=== PATIENT | female | born 1965 | race Caucasian/White ===

== ENCOUNTER → 2020-05-10 10:20 | Outpatient (CLI) | payer OTHER, SELFPAY ==
[2020-05-10 11:24] LABS: Hemoglobin A1C% w Est Avg Glu 5.5 % (4.0-6.0)
[2020-05-10 11:35] LABS: Free T3, Triiodothyronine Free 4.09 pg/mL (2.77-5.27); Free T4, Direct Thyroxine 1.26 ng/dL (0.78-2.19)
[2020-05-10 11:37] LABS: Progesterone, Total 0.71 ng/mL
[2020-05-10 11:49] LABS: Thyroid Stimulating Hormone 1.11 uIU/mL (0.47-4.68)
[2020-05-10 11:53] LABS: Ferritin 49 ng/mL (11-264)
[2020-05-10 19:44] LABS: Vitamin D 25 Hydroxy (D3) < 12.8 ng/mL (30.0-100.0)
[2020-05-11 07:02] LABS: Insulin Level Total 8.6 uIU/mL (2.6-24.9); Sex Hormone Binding Globulin 82.3 nmol/L (17.3-125.0); Triiodothyronine T3 Total 126 ng/dL (71-180)
[2020-05-11 09:42] LABS: Thyroid Peroxidase Antibodies <9 IU/mL (0-34)
[2020-05-11 14:52] LABS: Lead, Blood < 1 ug/dL (0-4); Mercury, Blood 3.1 ug/L (0.0-14.9)
[2020-05-11 15:35] LABS: Anti Thyroglobulin Antibody 4.8 IU/mL (0.0-0.9)
[2020-05-13 08:36] LABS: Percent Free Testosterone 2.34 % (0.50-2.80); Testosterone Free 0.57 ng/dL (0.10-0.85); Testosterone Total 24.5 ng/dL (.)
[2020-05-15 14:39] LABS: Triiodothyronine T3 Reverse 16.7 ng/dL (9.2-24.1)
[2020-05-16 08:16] LABS: Matrix metalloprot 9 631 ng/mL (.)
[2020-05-17 11:23] LABS: Melanocyte Stim Hormone <8 pg/mL (0-40)
[2020-05-19 13:24] LABS: LDL Particle SEE SEPARATE REPORTS
== END ==
PROVIDERS: Referring Provider Family Medicine; Visit Provider Family Medicine
DX: E66.3 Overweight (principal); R05 Cough; R09.81 Nasal congestion; K21.9 Gastro-esophageal reflux disease without esophagitis; G47.9 Sleep disorder, unspecified; N95.9 Unspecified menopausal and perimenopausal disorder; E63.9 Nutritional deficiency, unspecified; Z13.9 Encounter for screening, unspecified
CPT/HCPCS: 36415; 80061; 82306; 82627; 82670; 82728; 83036; 83519; 83520; 83525; 83704; 83825; 84144; 84270; 84402; 84403; 84439; 84443; 84480; 84481; 84482; 86140; 86160; 86376; 86800

== ENCOUNTER → 2020-06-20 16:13 | Outpatient (CLI) | payer OTHER, SELFPAY ==
[2020-06-20 18:02] LABS: Vitamin D 25 Hydroxy (D3) 51.4 ng/mL (30.0-100.0)
== END ==
PROVIDERS: PCP Family Medicine; Referring Provider Family Medicine; Visit Provider Family Medicine
DX: E63.9 Nutritional deficiency, unspecified (principal)
CPT/HCPCS: 36415; 82306

== ENCOUNTER → 2020-11-15 12:15 | Outpatient (CLI) | payer OTHER, SELFPAY ==
[2020-11-15 14:04] LABS: Free T3, Triiodothyronine Free 4.48 pg/mL (2.77-5.27); Free T4, Direct Thyroxine 1.31 ng/dL (0.78-2.19)
[2020-11-15 14:19] LABS: Thyroid Stimulating Hormone 0.973 uIU/mL (0.47-4.68)
[2020-11-15 15:01] LABS: Vitamin D 25 Hydroxy (D3) 45.5 ng/mL (30.0-100.0)
[2020-11-16 06:32] LABS: Thyroid Peroxidase Antibodies 8 IU/mL (0-34); Triiodothyronine T3 Total 118 ng/dL (71-180)
[2020-11-16 18:36] LABS: Anti Thyroglobulin Antibody <1.0 IU/mL (0.0-0.9)
[2020-11-19 08:12] LABS: Triiodothyronine T3 Reverse 17.6 ng/dL (9.2-24.1)
== END ==
PROVIDERS: Referring Provider Family Medicine; Visit Provider Family Medicine
DX: Z77.120 Contact with and (suspected) exposure to mold (toxic) (principal); R94.6 Abnormal results of thyroid function studies; E63.9 Nutritional deficiency, unspecified
CPT/HCPCS: 36415; 82306; 84439; 84443; 84480; 84481; 84482; 86376; 86800

== ENCOUNTER → 2024-10-19 12:38 | Outpatient (CLI) | payer OTHER, SELFPAY ==
--- NOTE | 2024-10-19 12:39 | DI.RAD.S_ITS ---
PROCEDURE: XR CHEST 2V INDICATIONS: Cough TECHNIQUE: 2 views of the chest were acquired. COMPARISON: [facility], , CHEST 2 VIEW, 11/13/2015, 14:02. FINDINGS: Heart, mediastinum and pulmonary vascular: Heart is normal in size and configuration. Mediastinum is unremarkable. Pulmonary vascular is normal. Lungs: A 9 cm well-circumscribed mass or atypical infiltrate has developed in the posterior left upper lobe. Pleural spaces: Normal-no effusions or pneumothorax. Bones and soft tissues: Normal IMPRESSION: 9 cm well-circumscribed mass versus atypical consolidated infiltrate developing in the posterior left lung apex. If patient's symptoms are compatible with an acute pneumonia , she could be treated with antibiotics and a chest x-ray could be repeated in 3-4 weeks to determine clearance. If the symptoms are not present or the density persists on follow-up plain film chest CT will be required to evaluate for mass Dictated by: Jerry Carlson M.D. on 10/20/2024 at 10:49 Approved by: Jerry Carlson M.D. on 10/20/2024 at 10:51
== END ==
PROVIDERS: Referring Provider Nurse Practitioner Family; Visit Provider Nurse Practitioner Family
DX: R05.9 Cough, unspecified (principal); R91.8 Other nonspecific abnormal finding of lung field
CPT/HCPCS: 71046

== ENCOUNTER 2024-11-23 12:49 | Emergency (ER) | payer OTHER, SELFPAY ==
[2024-11-23 12:50] VITALS: BP 157/89; PULSE 67; RESP 16; TEMP 36.6; O2SAT 99; BMI 26.2
[2024-11-23 12:56] VITALS: PULSE 78; RESP 17; O2SAT 99
--- NOTE | 2024-11-23 12:59 | ED_ITS ---
HPI - Abdominal Pain General Chief Complaint: Abdominal Pain Stated Complaint: inguinal hernia Time Seen by Provider: 11/23/24 12:53 History of Present Illness HPI narrative: Patient is a 58-year-old female without any significant past medical history comes into the ED from home for evaluation of bulge to her right groin, she states that she has always noticed this for several years however given the fact that she has had purposeful weight loss she feels like it is causing her more issues/discomfort. She states that it is only there when she stands however she states that it does improve/disappear when she lays down. She denies any surgeries, denies any other symptoms at this time. Related Data Previous Rx's ?Medication ?Instructions ?Recorded albuterol sulfate 90 mcg/actuation 2 puff inhalation Q 6H PRN 10/19/24 aerosol inhaler shortness of breath or wheez ing #6.7 grams benzonatate 200 mg capsule 200 mg PO BID PRN cough #28 caps 10/19/24 inhalational spacing device #1 ea 10/19/24 (Aerochamber MV spacer) amoxicillin 875 mg-potassium 1 tab PO BID #10 tabs 09/08 clavulanate 125 mg tablet azithromycin 250 mg tablet See Rx Instructions PO .COM PLEX #6 10/20/24 tabs Allergies Allergy/AdvReac Type Severity Reaction Status Date / Time No Known Drug Allergies Allergy Unverified 11/17/24 09:42 Review of Systems Review of Systems Narrative: General: Denies fever, chills, weight loss HEENT: Denies headache, eye drainage, eye irritation, head trauma, sore throat, voice change Cardiovascular: Denies any chest pain, palpitations, tachycardia Respiratory: Denies any shortness of breath, cough, wheeze, stridor GI/: Positive bulge to the right groin region Denies any abdominal pain, nausea, vomiting, diarrhea, bright red blood per rectum, melanotic stools, urinary frequency, urinary retention, dysuria, hematuria MSK: Denies any joint pain, muscle pains, swelling Skin: Denies any rashes, lesions, discoloration Neuro: Denies any headache, lightheadedness, dizziness, fainting, weakness Psych: Denies SI/HI Patient History Medical History (Updated 11/23/24 @ 14:38 by Lele Richard DO) Thyroid nodule Chronic cough (~2012) Tinnitus (~2002) History of exposure to respiratory irritant (2000) Chronic headaches (2000) History of heavy periods (2014) Irregular periods/menstrual cycles (2013) Migraines (1977) Foot pain (2014) Surgical History (Updated 09/25/17 @ 08:06 by Halina Tellez) History of bladder surgery (~1973) No history of previous surgery (11/2015) Family History (Updated 09/25/17 @ 08:10 by Halina Tellez) Grandmother Stroke Breast cancer Grandfather Heart disease Grandfather Blood disorder Grandmother Parkinson's disease Father No problems noted. Social History Smoking Status: Never smoker Exam Narrative Exam Narrative: General: Cooperative, well-developed, not in acute distress HEENT: Normocephalic, atraumatic, PERRLA, normal sclera, eyelids normal Neck: Active full range of motion, atraumatic Chest: Normal to inspection, negative crepitus, no overlying erythema ecchymosis Respiratory: Normal respiratory effort, not in acute respiratory distress, clear to auscultation bilaterally negative cough, wheeze, tachypnea, rhonchi, rales Cardiology: Regular rate rhythm negative gallop, murmur, rubs GI/: No tenderness to palpation, soft, non rigid, normal to inspection, there is a noted a bulge to the right groin when standing however I am able to reduce it, when lying down it is not present. There is no overlying skin discoloration there is no tenderness to palpation exam deferred MSK: Full active range of motion in all 4 extremities, atraumatic, no tenderness to palpation of any bony prominences Skin: No rashes or lesions noted Neuro: Alert awake oriented x3, moves all 4 extremities spontaneously, cranial nerves intact, able to answer all questions appropriately follows commands appropriately Psych: Cooperative, negative suicidal or homicidal ideations Initial Vital Signs Initial Vital Signs: Vital Signs Temperature 98 F 11/23/24 12:50 Pulse Rate 67 11/23/24 12:50 Respiratory Rate 16 11/23/24 12:50 Blood Pressure 157/89 H 11/23/24 12:50 Pulse Oximetry 99 11/23/24 12:50 Oxygen Delivery Method Room Air 11/23/24 12:50 Course Orders Ordered: ED Orders 11/23/24 13:10 Complete Blood Count AUTO DIFF Stat Comprehensive Metabolic Panel Stat Lactate (Lactic Acid) Stat Lipase Stat MAG [Magnesium] Stat 11/23/24 13:51 CT abdomen pelvis w con Stat Discontinued Medications Sodium Chloride (Normal Saline 0.9%) 1,000 mls @ 1,000 mls/hr IV BOLUS ONE Stop: 11/23/24 13:58 Last Admin: 11/23/24 13:38 Dose: 1,000 mls/hr Documented By: CYNDY Vital Signs Vital signs: Vital Signs - 8 hr 11/23/24 12:50 11/23/24 12:56 Temperature 98 F Pulse Rate 67 78 Respiratory Rate 16 17 Blood Pressure 157/89 H Pulse Oximetry 99 99 Oxygen Delivery Method Room Air Room Air MDM - Abdominal Pain Lab Data 11/23/24 13:10 11/23/24 13:10 Labs: Lab Results 11/23/24 Range/Units 13:10 WBC 6.0 (4.5-11.0) X10^3/uL RBC 4.87 (4.0-5.2) X10^6/uL Hgb 13.6 (12.0-16.0) g/dL Hct 41.2 (36-46) % MCV 84.7 (80-100) fL MCH 28.0 (26-34) PG MCHC 33.1 (30-36) % RDW 15.5 H (11.6-14.8) % Plt Count 201 (150-400) X10^3/uL Neut % (Auto) 44.5 L (50-75) % Lymph % (Auto) 47.5 H (25-40) % [place] % (Auto) 6.5 (3-14) % Eos % (Auto) 0.6 L (2-4) % Baso % (Auto) 0.9 (0-2) % Neut # (Auto) 2700 (2018-7197) /uL Lymph # (Auto) 2900 (5744-2863) /uL [place] # (Auto) 400 (0-900) /uL Eos # (Auto) 0 (0-450) /uL Baso # (Auto) 100 (0-100) /uL Sodium 136 L (137-145) mmol/L Potassium 4.2 (3.4-5.1) mmol/L Chloride 107 (98-107) mmol/L Carbon Dioxide 20 L (22-32) mmol/L BUN 15 (7-17) mg/dL Creatinine 0.69 (0.52-1.04) mg/dL Estimated GFR > 60 (>60) mL/min BUN/Creatinine Ratio 21.7 (6-22) Glucose 109 H (70-99) mg/dL Lactate 0.8 (0.7-2.1) mmol/L Calcium 9.3 (8.4-10.2) mg/dL Magnesium 1.7 (1.6-2.3) mg/dL Total Bilirubin 1.6 H (0.2-1.3) mg/dL AST 40 H (14-36) IU/L ALT 61 H (<35) IU/L Alkaline Phosphatase 100 (38-126) U/L Total Protein 7.4 (6.3-8.2) g/dL Albumin 4.6 (3.5-5.0) g/dL Globulin 2.8 (1.7-4.1) g/dL Albumin/Globulin Ratio 1.6 (1.0-2.8) Lipase 226 (23-300) U/L [facility] Narrative Medical decision making narrative: Patient is a 58-year-old female without any significant past medical history presenting from home for evaluation of persistent bulge her right groin. Patient states that she noticed this several years ago but has only caused her much discomfort after she had purposeful weight loss. She states that she feels like it is causing her more discomfort which is what brought her in. On my exam she does have a notable bulge when standing however I am able to reduce it, when she is laying down it is not palpable she has no overlying skin changes. Patient without any history of surgeries to the abdomen. She had lab work imaging performed here in the emergency department. Lab work unremarkable, no leukocytosis, electrolytes normal, she did have slightly elevated bilirubin at 1.6 along with slightly elevated AST ALT is at 40 and 61 respectively, CT scan not concerning for acute cholecystitis. CT just showing umbilical hernia fat containing and cysts within the liver, she is in informed of these incidental findings and instructed to follow up with her primary care doctor, she was also instructed to follow up with general surgery as needed for possible inguinal hernia repair given able to reduce on my exam. She verbalized understanding of this and agrees to being discharged home with outpatient follow up Discharge Plan Departure Patient Disposition: Home Clinical Impression: Hernia, umbilical Activity Restrictions/Additional Instructions: Please follow up with your primary care doctor for your incidental findings, follow up with general surgery as needed in outpatient setting Please read the discharge instructions sheet carefully and bring all papers to all doctor follow-up visits, as it may contain information that your doctor may want to see. Disease processes change and evolve, if your symptoms worsen or if you develop any new symptoms that are concerning to you please return for evaluation. Your evaluation today does not show any evidence of any life- threatening/serious illnesses requiring admission to the hospital or surgery. Please follow-up with your doctor for re-evaluation in approximately 1 day. Seek immediate medical attention for any worrisome symptoms. *If you do not have a primary care provider please contact the [facility] Resource line at [phone]. They will ask some questions about your medical history and help get you set up with a doctor in the community. Prescriptions: No Action benzonatate 200 mg capsule 200 mg PO BID PRN (Reason: cough) Qty: 28 0RF albuterol sulfate 90 mcg/actuation HFA aerosol inhaler 2 puff inhalation Q6H PRN (Reason: shortness of breath or wheezing) Qty: 6.7 0RF (DME) Aerochamber MV Spacer See Rx Instructions .ROUTE .MEDSUPPLY Qty: 1 0RF Rx Instructions: As directed azithromycin 250 mg tablet See Rx Instructions PO .COMPLEX Qty: 6 0RF Rx Instructions: For 250 mg dose pack: take 500 mg today (day 1), then 250 mg for 4 days (days 2-5) PO amoxicillin-pot clavulanate 875-125 mg tablet 1 tab PO BID Qty: 10 0RF Referrals: Arnol Rai MD [Physician, General Surgery] Janessa Bhakta MD [Primary Care Provider, Family Practice] Stand Alone Forms: Patient Portal/API
[2024-11-23 13:17] LABS: Add Manual Diff / Slide Review NO; Hematocrit 41.2 % (36-46); Hemoglobin 13.6 g/dL (12.0-16.0); Lymphocytes Absolute Auto 2900 /uL (1100-4500); Mean Corpuscular HGB Conc 33.1 % (30-36); Mean Corpuscular Hemoglobin 28.0 PG (26-34); Mean Corpuscular Volume 84.7 fL (80-100); Platelet Count 201 X10^3/uL (150-400)
[2024-11-23 13:29] LABS: Alanine Aminotransferase 61 IU/L (<35); Albumin 4.6 g/dL (3.5-5.0); Albumin Globulin Ratio 1.6 (1.0-2.8); Alkaline Phosphatase 100 U/L (38-126); Blood Urea Nitrogen 15 mg/dL (7-17); Calcium 9.3 mg/dL (8.4-10.2); Carbon Dioxide 20 mmol/L (22-32); Chloride 107 mmol/L (98-107); Estimated Glomerular Filt Rate > 60 mL/min (>60); Globulin 2.8 g/dL (1.7-4.1); Glucose 109 mg/dL (70-99); HEMOLYSIS < 15 (0-50); Lactate (Lactic Acid) 0.8 mmol/L (0.7-2.1); Lipase 226 U/L (23-300); Magnesium 1.7 mg/dL (1.6-2.3); Potassium 4.2 mmol/L (3.4-5.1); Sodium 136 mmol/L (137-145); Total Protein 7.4 g/dL (6.3-8.2)
[2024-11-23] MEDS: SODIUM CHLORIDE 0.9% 1,000 ML 1000 ML IV (13:38)
--- NOTE | 2024-11-23 13:51 | DI.CT.S_ITS ---
PROCEDURE: CT ABDOMEN PELVIS W CON INDICATIONS: Bulge to right groin area TECHNIQUE: After the administration of intravenous contrast, axial sections acquired from the lung bases to the pubic symphysis. Coronal and sagittal reformats were performed. For radiation dose reduction, the following was used: automated exposure control, adjustment of mA and/or kV according to patient size. COMPARISON: None. FINDINGS: Image quality: Diagnostic. Lower Chest: No significant findings. ABDOMEN: Liver: No solid mass. Multiple well-circumscribed hypodensities are seen scattered in liver parenchyma likely represent hepatic cysts and measures up to 1 cm in size in right hepatic lobe series 2, image 34. Gallbladder: No radiopaque gallstones or wall thickening. Biliary ducts: No biliary dilation. Pancreas: No ductal dilation. Spleen: Size is within normal limits. Adrenal Glands: No adrenal nodules. Kidneys and Ureters: No hydronephrosis. No solid mass. No complex renal cystic lesion which requires follow up. Stomach and Bowel: There is no bowel obstruction. No abnormal bowel wall thickening or mesenteric fat stranding. Jxlb-yi-cbabnjlq fecal stasis in the colon is seen. Appendix is visualized in right lower quadrant and is normal in size and appearance. No abscess collection. Peritoneum: No abnormal intraperitoneal fluid. No free air. Ventral Wall: Small umbilical hernia containing fat only. Abdominal Nodes: No retroperitoneal or mesenteric adenopathy by size criteria. Vessels: Aorta and inferior vena cava are normal in size. PELVIS: Pelvic Organs: Unremarkable. Bladder: No bladder wall thickening, accounting for underdistention. Pelvic Nodes: No enlarged lymph nodes. Miscellaneous: No inguinal hernias are seen. Bones: No aggressive osseous abnormality. IMPRESSION: 1. Normal appendix. No bowel obstruction or abnormal bowel wall thickening. Eink-wb-nddbmeqe constipation. No free fluid or free air. 2. Small umbilical hernia containing fat only. No inguinal hernia. 3. No obstructing renal stones or hydronephrosis. 4. Likely small cysts seen scattered in liver parenchyma. Dictated by: Vinny Lira M.D. on 11/23/2024 at 14:13 Approved by: Vinny Lira M.D. on 11/23/2024 at 14:22
[2024-11-23 14:42] VITALS: O2SAT 98
[2024-11-23 14:43] VITALS: BP 143/77; PULSE 64; RESP 17; O2SAT 98
== END 2024-11-23 14:47 | disposition home or self-care (01) ==
PROVIDERS: Emergency Provider Student in an Organized Health Care Education/Training Program; PCP Family Medicine
DX: K42.9 Umbilical hernia without obstruction or gangrene (principal)
CPT/HCPCS: 36415; 74177; 80053; 83605; 83690; 83735; 85025; 96360; 99284; Q9967

== ENCOUNTER → 2024-11-25 13:21 | Outpatient (CLI) | payer OTHER, SELFPAY ==
--- NOTE | 2024-11-25 13:22 | DI.RAD.S_ITS ---
PROCEDURE: XR CHEST 2V INDICATIONS: f/u pneumonia, lung mass TECHNIQUE: 2 views of the chest were acquired. COMPARISON: [facility], CT, CT CHEST W CON, 11/13/2024, 13:50. [facility], CR, XR CHEST 2V, 11/10/2024, 10:31. [facility], CR, XR CHEST 2V, 10/19/2024, 12:33. FINDINGS: Surgical changes and devices: None. Lungs and pleura: Left upper lung cavitary lesion with decreased peripheral opacities. No new consolidation. Mediastinum: Mediastinal contours are normal. Heart size is normal. Bones and chest wall: No suspicious bony abnormalities. Soft tissues appear unremarkable. IMPRESSION: Left upper lobe cavitary lesion with decreased perilesional consolidation which may represent improving infectious process. Dictated by: Jimy Holland M.D. on 11/25/2024 at 14:21 Approved by: Jimy Holland M.D. on 11/25/2024 at 14:23
== END ==
PROVIDERS: PCP Family Medicine; Referring Provider Family Medicine; Visit Provider Family Medicine
DX: R91.8 Other nonspecific abnormal finding of lung field (principal)
CPT/HCPCS: 71046

== ENCOUNTER → 2024-11-26 15:11 | Outpatient (CLI) | payer OTHER, SELFPAY ==
--- NOTE | 2024-11-26 15:12 | DI.US.S_ITS ---
PROCEDURE: US THYROID INDICATIONS: thyroid nod TECHNIQUE: Real-time scanning was performed of the thyroid gland, with image documentation. COMPARISON: None. FINDINGS: Thyroid: Right lobe measures 4.2 x 1.7 x 1.4 cm. Left lobe measures 5 x 2.1 x 1.5 cm. Isthmus is 0.5 cm thick. Echotexture is homogeneous. Nodule number: 1 Location: Right mid Size: 0.4 x 0.4 x 0.4 cm. Composition: Solid Echogenicity: Hyperechoic Shape: wider than tall. Margins: Smooth Echogenic foci: None Total points: 3 ACR TI-RADS category: TR 3 Nodule number: 2 Location: Left mid Size: 0.8 x 0.7 x 0.7 cm. Composition: Mixed cystic and solid Echogenicity: Hyperechoic Shape: wider than tall. Margins: Smooth Echogenic foci: None Total points: 2 ACR TI-RADS category: TR 2, not suspicious Nodule number: 3 Location: Left inferior Size: 2.2 x 2.1 x 1.6 cm. Composition: Spongiform Echogenicity: Isoechoic Shape: wider than tall. Margins: Smooth Echogenic foci: None Total points: 1 ACR TI-RADS category: TR 1, benign IMPRESSION: A few small thyroid nodules. Not meeting criteria for required imaging follow-up. ACR TI-RADS definitions and recommendations: TI-RADS 1 (benign): 0 points. FNA not needed. TI-RADS 2 (not suspicious): 2 points. FNA not needed. TI-RADS 3: 3 points. * FNA if 2.5 cm or larger, follow up if 1.5 cm or larger (at 1, 3, and 5 years). TI-RADS 4: 4-6 points. * FNA if 1.5 cm or larger, follow up if 1 cm or larger (at 1, 2, 3, and 5 years). TI-RADS 5: 7 points or more. * FNA if 1 cm or larger, follow up if 0.5 cm or larger (every year for 5 years). Dictated by: Conrad Huynh M.D. on 11/27/2024 at 11:56 Approved by: Conrad Huynh M.D. on 11/27/2024 at 12:00
== END ==
LOC: US 15:12
PROVIDERS: PCP Family Medicine; Referring Provider Family Medicine; Visit Provider Family Medicine
DX: E04.2 Nontoxic multinodular goiter (principal)
CPT/HCPCS: 76536

== ENCOUNTER → 2024-12-01 13:55 | Outpatient (CLI) | payer OTHER, SELFPAY | PROVIDERS: PCP Family Medicine; Referring Provider Family Medicine; Visit Provider Family Medicine | DX: Z12.11 Encounter for screening for malignant neoplasm of colon (principal) | CPT/HCPCS: 82274 ==

== ENCOUNTER → 2024-12-02 15:16 | Outpatient (CLI) | payer OTHER, SELFPAY ==
--- NOTE | 2024-12-02 15:17 | DI.MG.S_ITS ---
MM screening mammo BI: 12/02/2024. BI-RADS: 1 CLINICAL: 58-year old female for bilateral screening mammogram. Tyrer-Cuzick lifetime risk of 13.5%. No personal or first-degree family history of breast cancer. PRIOR EXAMS: None. This is a baseline mammogram. MAMMOGRAPHY TECHNIQUE: 2D and 3D (tomosynthesis) digital mammographic views obtained, with additional images as needed for full coverage. Current study was also evaluated with a Computer Aided Detection (CAD) system. DENSITY C. The breasts are heterogeneously dense, which may obscure small masses. MAMMOGRAPHY FINDINGS Bilateral: No suspicious mass, asymmetry, microcalcification, or other abnormality seen. IMPRESSION: * No evidence of malignancy. RECOMMENDATIONS Bilateral * Annual screening mammography. OVERALL ASSESSMENT CATEGORY BI-RADS-1: Negative. The [employer] recommends annual screening mammography beginning at age 40 for women with average risk of breast cancer. ELECTRONICALLY SIGNED: Klaudia Michael M.D. on 12/04/2024 at 03:27:11 PM PT Interpreting Station ID: [id number]
== END ==
PROVIDERS: PCP Family Medicine; Referring Provider Family Medicine; Visit Provider Family Medicine
DX: Z12.31 Encounter for screening mammogram for malignant neoplasm of breast (principal); R92.333 Mammographic heterogeneous density, bilateral breasts
CPT/HCPCS: 77063; 77067

== ENCOUNTER → 2025-01-01 11:54 | Outpatient (CLI) | payer OTHER, SELFPAY ==
--- NOTE | 2025-01-01 11:56 | DI.CT.S_ITS ---
PROCEDURE: CT CHEST WO CON INDICATIONS: H/o cavitary pneumonia, lindsey, plz eval TECHNIQUE: Noncontrast 5 mm thick sections acquired from the pulmonary apices to the posterior costophrenic angles. 1 mm lung window, 5 mm thick coronal and sagittal and 7 mm axial MIP reformats were then acquired. For radiation dose reduction, the following was used: automated exposure control, adjustment of mA and/or kV according to patient size. COMPARISON: [facility], CT, CT CHEST W CON, 11/13/2024, 13:50. FINDINGS: Image quality: Diagnostic Lungs and pleura: Left upper lung cavitation has resolved. However, there is a persistent nodule today, measuring approximately 1.6 x 1.3 cm. This appears to cross the fissure into the superior portion of the left lower lobe. No pleural effusions. Mediastinum, heart, and esophagus: Mildly patulous esophagus. Heart size is at the upper limit of normal. No enlarged lymph nodes by size criteria. Chest wall and thyroid: Left thyroid nodule better assessed on ultrasound. Chest wall is otherwise unremarkable Upper abdomen: No gross abnormality on these noncontrast images. Bones: No aggressive appearing osseous abnormality IMPRESSION: Left upper lung cavitation has resolved. However, there is a persistent nodule measuring up to 1.6 cm. Another 2-3 month follow-up is recommended. Consider PET-CT and/or sampling if persistent. Other findings above. Dictated by: Parminder Jhaveri M.D. on 01/01/2025 at 12:29 Approved by: Parminder Jhaveri M.D. on 01/01/2025 at 12:33
== END ==
LOC: CT 11:55
PROVIDERS: PCP Family Medicine; Referring Provider Internal Medicine Critical Care Medicine; Visit Provider Internal Medicine Critical Care Medicine
DX: J18.9 Pneumonia, unspecified organism (principal); R91.1 Solitary pulmonary nodule
CPT/HCPCS: 71250